=== PATIENT | female | born 1955 | race Two or more races ===

== ENCOUNTER 2023-02-23 19:38 | Inpatient (IN) | payer OTHER, MEDICAID ==
[~2023-02-23] VITALS: Ht 165.1 cm; Wt 71.0 kg
[2023-02-23 20:36] LABS: Basophils # (auto) 0 10 ^3/uL (0-0.2); Basophils % (auto) 0.6 % (0.0-2.0); Eosinophils # (auto) 0.2 10 ^3/uL (0-0.8); Eosinophils % (auto) 3.7 % (0.0-7.0); Hematocrit 34.4 % (36.0-46.0); Hemoglobin 11.9 g/dL (12.2-16.2); Lymphocytes # (auto) 1.5 10 ^3/uL (0.4-5.4); Lymphocytes % (auto) 25.1 % (10.0-50.0); Mean Corpuscular Hemoglobin 31.5 pg (28.0-32.0); Mean Corpuscular Hgb Conc. 34.6 g/dL (32.0-36.0); Mean Corpuscular Volume 91.1 fL (80.0-100.0); Monocytes # (auto) 0.5 10 ^3/uL (0-1.3); Monocytes % (auto) 8.8 % (0.0-12.0); Neutrophils # (auto) 3.8 10 ^3/uL (1.6-8.6); Neutrophils % (auto) 61.8 % (37.0-80.0); Red Blood Cells 3.78 10^6/uL (4.0-5.20); Red Cell Distribution Width 14.5 % (11.8-14.3); White Blood Cell 6.1 10^3/uL (4.4-10.8)
[2023-02-23 20:57] LABS: Albumin 3.3 g/dL (3.4-5.0); Calcium 8.3 mg/dL (8.5-10.1); Magnesium 1.9 mg/dL (1.6-2.6); Potassium 3.4 mmol/L (3.5-5.1)
[2023-02-23 20:59] LABS: BUN/Creatinine Ratio 20.7 (10.0-20.0)
[2023-02-23 21:02] LABS: Bilirubin, Total 0.2 mg/dL (0.2-1.0); Total Protein 7.1 g/dL (6.4-8.2)
[2023-02-23 21:24] LABS: Partial Thromboplastin Time 29.1 sec (24.6-33.4)
[2023-02-24] MEDS ORDERED: IOHEXOL 350 MG/ML 100ML IJ ONE (01:42)
[2023-02-24] MEDS ORDERED: ASPirin 325 MG TAB PO ONE (04:30)
[2023-02-24] MEDS ORDERED: ACETAMINOPHEN 325 MG TAB PO PRN (05:00)
[2023-02-24] MEDS ORDERED: ONDANSETRON HCL 4 MG/2 ML VIAL IV PRN (05:00)
[2023-02-24] MEDS ORDERED: NITROGLYCERIN 0.4 MG SL TAB SL PRN (05:00)
[2023-02-24] MEDS ORDERED: TEMAZEPAM 15 MG CAP PO PRN (05:00)
[2023-02-24] MEDS ORDERED: MORPHINE SULFATE INJ 2 MG/ml SYRG IV PRN (05:00)
[2023-02-24] MEDS ORDERED: LEVOTHYROXINE SODIUM 112 MCG TAB PO ONE (05:00)
[2023-02-24] MEDS ORDERED: LEVOTHYROXINE SODIUM 25 MCG TAB PO SCH ×2 (07:00)
[2023-02-24] MEDS ORDERED: POTASSIUM EFFERVESENT TAB 25 MEQ PO ONE (08:45)
[2023-02-24] MEDS ORDERED: ADENOSINE 57 MG in GIVE UN-DILUTED 0 ML IV ONE (09:00)
[2023-02-24 09:34] VITALS: BP 146/83
[2023-02-24 09:42] LABS: Urine Bacteria NONE SEEN /hpf (None Seen); Urine Blood Negative /uL (Negative); Urine Mucus FEW (None Seen); Urine WBC 3 /hpf (0 - 5)
[2023-02-24] MEDS: ASPirin 81 mg TAB PO SCH (10:00)
[2023-02-24] MEDS ORDERED: MAGNESIUM OXIDE 400 MG TAB PO ONE (10:15)
[2023-02-24] MEDS: LISINOPRIL 10 MG TAB PO SCH (10:30)
[2023-02-24] MEDS: ENOXAPARIN SOD 40 MG/0.4 ML SYRINGE SC SCH (10:30)
[2023-02-24 11:11] LABS: Urine Specific Gravity > 1.050 (1.001-1.035)
[2023-02-24 16:25] VITALS: BP 111/64
[2023-02-24 17:05] VITALS: BP 131/67
[2023-02-24] MEDS ORDERED: LEVO112T4 PO (17:06)
[2023-02-24] MEDS ORDERED: CHOL1CAP21 PO (17:06)
[2023-02-24] MEDS ORDERED: DICL1GEL50 TOP (17:06)
[2023-02-24] MEDS ORDERED: CALC0.5C PO (17:06)
[2023-02-24] MEDS ORDERED: ASPI-325 PO (17:06)
[2023-02-24] MEDS ORDERED: ATOR20TA50 PO (17:06)
[2023-02-24] MEDS ORDERED: LISI-716 PO (17:06)
[2023-02-24 21:32] VITALS: BP 131/70
[2023-02-24] MEDS ORDERED: ATORVASTATIN 20 MG TAB PO SCH (22:00)
[2023-02-25] VITALS (7 sets, daily range): BP systolic 116–122; BP diastolic 58–77
[2023-02-25 06:45] LABS: Anion Gap 6 (5-15); BUN/Creatinine Ratio 28.3 (10.0-20.0); Blood Urea Nitrogen 17 mg/dL (7-18); Calcium 7.7 mg/dL (8.5-10.1); Carbon Dioxide 27 mmol/L (21-32); Chloride 106 mmol/L (98-107); GFR African American 127 mL/min; GFR Non-African American 105 mL/min; Glucose 100 mg/dL (74-106); Potassium 3.7 mmol/L (3.5-5.1); Sodium 139 mmol/L (136-145)
[2023-02-25] MEDS ORDERED: LEVOTHYROXINE SODIUM 112 MCG TAB PO SCH (07:00)
[2023-02-25] MEDS ORDERED: IBUPROFEN 600 MG TAB PO ONE (07:15)
[2023-02-25] MEDS: ASPirin 81 mg TAB PO SCH (10:30)
[2023-02-25] MEDS: LISINOPRIL 10 MG TAB PO SCH (10:30)
[2023-02-25] MEDS: ENOXAPARIN SOD 40 MG/0.4 ML SYRINGE SC SCH (10:32)
[2023-02-25 10:35] LABS: Free T3 3.34 pg/mL (2.3-4.2); Free T4 (Free Thyroxine) 1.61 ng/dL (0.89-1.76)
[2023-02-25] MEDS ORDERED: LEVO100T69 PO (11:32)
== END 2023-02-25 17:28 | disposition home or self-care (01) | DRG 313 ==
LOC: ER 19:38 → TELE 02-24 04:57 → TELE-WESTW 02-24 16:13
PROVIDERS: ADMIT Nurse Practitioner; ATTEND Internal Medicine
DX: R07.89 Other chest pain (principal); I25.10 Atherosclerotic heart disease of native coronary artery without angina pectoris; D64.9 Anemia, unspecified; E11.9 Type 2 diabetes mellitus without complications; E78.5 Hyperlipidemia, unspecified; E87.6 Hypokalemia; E89.0 Postprocedural hypothyroidism; I10 Essential (primary) hypertension; M47.814 Spondylosis without myelopathy or radiculopathy, thoracic region; Z82.3 Family history of stroke; Z85.850 Personal history of malignant neoplasm of thyroid
CPT/HCPCS: 36415; 70450; 71045; 71275; 78452; 80048; 80053; 80061; 81001; 83036; 83735; 83880; 84439; 84443; 84481; 84484; 85025; 85379; 85610; 85730; 93005; 93017; 93306; G0378; J0153